=== PATIENT | female | born 2000 | race Caucasian/White ===

== ENCOUNTER → 2023-10-07 12:11 | Outpatient (REF) | payer OTHER, SELFPAY | LOC: OHS 12:11 | PROVIDERS: ATTENDING PHYSICIAN Nurse Practitioner | DX: Z13.9 Encounter for screening, unspecified (principal) | CPT/HCPCS: 71046 ==

== ENCOUNTER → 2025-04-30 14:07 | Outpatient (REF) | payer OTHER, SELFPAY | LOC: WDC 14:07 | PROVIDERS: FAMILY PHYSICIAN Family Medicine | DX: R22.30 Localized swelling, mass and lump, unspecified upper limb (principal) | CPT/HCPCS: 76642 ==